=== PATIENT | female | born 1965 | race Caucasian/White ===

== ENCOUNTER → 2016-06-20 | Outpatient (CLI) | payer OTHER ==
--- NOTE | 2016-06-21 03:15 | REP ---
Clinical: Sprain. Technique: Neutral and frog lateral views of the right hip. Findings: Subtle increase sclerosis to the acetabular roof with mild medial joint space narrowing and small periarticular calcification adjacent to the greater tuberosity suggest mild degenerative changes. No evidence for acute or healed fracture. No dislocation. Impression: Mild degenerative changes suggested. Signed by Ji Landaverde MD 06/21/2016 03:06 A
== END ==
LOC: M WUC 14:08
PROVIDERS: ATTEND Physician Assistant
DX: S73.101A Unspecified sprain of right hip, initial encounter (principal); X58.XXXA Exposure to other specified factors, initial encounter; Y92.89 Other specified places as the place of occurrence of the external cause